=== PATIENT | female | born 1960 | race Caucasian/White ===

== ENCOUNTER 2019-02-16 21:05 | Emergency (ER) | payer OTHER ==
[~2019-02-16] VITALS: Ht 157.5 cm; Wt 45.4 kg
--- OUTSIDE RECORDS SUMMARY | 2019-02-16 21:06 | XMS REPORT ---
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 Allergies, Adverse Reactions, Alerts This patient has no known allergies or adverse reactions. Medications This patient has no known medications. Results Test Description Test Time Test Comments Text Results Atomic Results Result Comments RIBS UNILAT W/CXR [place] [address] Patient Name: JACKELYN SANCHES MR #: [id number] : 1960 Age/Sex: 57/F Req #: [id number] Adm Physician: Ordered by: REGINA COTTON Report #: [id number] Location: ER Room/Bed: Procedure: [id number] DX/RIBS UNILAT W/CXR Exam Date: Exam Time: REPORT STATUS: Signed PROCEDURE: X-RAY UNILATERAL RIBS WITH CHEST X-RAY COMPARISON: Chest x- ray 07/03/16. INDICATIONS: LEFT ANTERIOR CHEST PAIN FINDINGS: The rib structures on the left appear intact. There are calcifications of the costochondral cartilage on both sides of the chest. No acute rib fracture or dislocation is identified. There is no evidence of focal osseous lesion. Single PA view of the chest demonstrates no pleural effusion, pleural thickening, or pneumothorax. The cardiomediastinal silhouette is normal in size with stable atherosclerotic calcifications of the aortic arch. CONCLUSION: No rib fracture or dislocation. Dictated by: Lucas Navarrete M.D. on 06/28/2017 at 16:26 Electronically approved by: Lucas Navarrete M.D. on 06/28/2017 at 16:26 Dictated By: LUCAS NAVARRETE MD 25 Transcribed By: AYANNA on 06/28/171625 COPY TO: REGINA COTTON
[2019-02-16] MEDS ORDERED: VITAMIN D400 UNIT PO (21:53)
--- NOTE | 2019-02-16 22:20 | Diagnostic Imaging Report ---
Exam: Lumbar spine 2 views History: Back pain Comparison: None. Findings: Age-indeterminate transverse process fracture versus nonfusion left L2. Degenerative anterolisthesis of L4 on L5. Disc spaces relatively maintained with mild narrowing at L4-L5. Severe lower lumbar facet arthropathy. Impression: Age-indeterminate transverse process fracture versus nonfusion left L2. Severe lower lumbar facet arthropathy. Signed by: Dr. Ravi Rodriguez M.D. on 02/16/2019 10:17 PM
== END 2019-02-16 23:15 | disposition home or self-care (01) ==
LOC: ER 21:05
DX: M54.5 Low back pain (principal); S39.012A Strain of muscle, fascia and tendon of lower back, initial encounter; S33.5XXA Sprain of ligaments of lumbar spine, initial encounter; M51.36 Other intervertebral disc degeneration, lumbar region; V43.62XA Car passenger injured in collision with other type car in traffic accident, initial encounter; Y92.488 Other paved roadways as the place of occurrence of the external cause; I10 Essential (primary) hypertension; E78.5 Hyperlipidemia, unspecified; G89.29 Other chronic pain; Z86.73 Personal history of transient ischemic attack (TIA), and cerebral infarction without residual deficits
CPT/HCPCS: 72100; 99283

== ENCOUNTER 2019-02-20 12:23 | Emergency (ER) | payer OTHER ==
[~2019-02-20] VITALS: Ht 157.5 cm; Wt 45.4 kg
[~2019-02-20 12:23] MED LIST: VITAMIN D400 UNIT PO
--- NOTE | 2019-02-20 14:50 | Diagnostic Imaging Report ---
Cervical Spine, 7 radiographs HISTORY: Pain COMPARISON: None. FINDINGS: Limited sensitivity for detection of subtle fractures and ligamentous abnormalities. On the lateral view, the cervical spine is visualized from the skull base to C6. The alignment is normal. No acute displaced fracture involving the visualized cervical spine. Vertebral body heights are maintained. Degenerative changes , most severe at C5-C6 and C6-C7. IMPRESSION: No acute radiographic abnormality. Degenerative changes. Signed by: Dr. Devon Owens MD on 02/20/2019 2:46 PM
== END 2019-02-20 15:46 | disposition home or self-care (01) ==
LOC: ER 12:23
DX: M54.2 Cervicalgia (principal); S16.1XXA Strain of muscle, fascia and tendon at neck level, initial encounter; V49.9XXA Car occupant (driver) (passenger) injured in unspecified traffic accident, initial encounter; I10 Essential (primary) hypertension; J44.9 Chronic obstructive pulmonary disease, unspecified; E78.5 Hyperlipidemia, unspecified; G89.29 Other chronic pain; Z86.73 Personal history of transient ischemic attack (TIA), and cerebral infarction without residual deficits
CPT/HCPCS: 72050; 99283

== ENCOUNTER 2021-01-24 20:32 | Emergency (ER) | payer OTHER ==
[~2021-01-24] VITALS: Ht 157.5 cm; Wt 45.4 kg
[2021-01-24] MEDS ORDERED: SODIUM CHLORIDE 0.9% 1000ML 1,000 ML IV STA (21:07)
[2021-01-24 21:25] LABS: BASOPHILS # (AUTO) 0.1 (0.0-0.1); BASOPHILS % 0.4 % (0.0-1.0); EOSINOPHILS # (AUTO) 0.1 (0.0-0.4); EOSINOPHILS % 0.8 % (0.0-6.0); HEMOGLOBIN 13.7 g/dL (12.0-16.0); LYMPHOCYTES # (AUTO) 1.5 (1.0-3.2); LYMPHOCYTES % 11.9 % (18.0-39.1); MEAN CORPUSCULAR HEMOGLOBIN 28.1 pg (28-32); MEAN CORPUSCULAR HGB CONC 31.1 g/dL (31-35); MEAN CORPUSCULAR VOLUME 90.2 fL (81-99); MONOCYTES # (AUTO) 1.3 (0.2-0.8); MONOCYTES % 10.3 % (4.4-11.3); NEUTROPHILS # (AUTO) 9.5 (2.1-6.9); NEUTROPHILS % 76.2 % (38.7-80.0); PLATELET COUNT 358 x10e3/uL (140-360); RED BLOOD COUNT 4.88 x10e6/uL (3.6-5.1); RED CELL DISTRIBUTION WIDTH 14.6 % (11.7-14.4)
[2021-01-24 21:43] LABS: ALBUMIN/GLOBULIN RATIO 1.1 (0.8-2.0); ANION GAP 18.4 mmol/L (8-16); CALCIUM 9.7 mg/dL (8.4-10.2); CREATININE, SERUM 1.14 mg/dL (0.57-1.11); POTASSIUM 3.4 mmol/L (3.5-5.1)
== END 2021-01-24 23:20 | disposition home or self-care (01) ==
LOC: ER 20:50
DX: S20.219A Contusion of unspecified front wall of thorax, initial encounter (principal); S00.83XA Contusion of other part of head, initial encounter; M79.632 Pain in left forearm; V43.52XA Car driver injured in collision with other type car in traffic accident, initial encounter; Y92.488 Other paved roadways as the place of occurrence of the external cause; I10 Essential (primary) hypertension; E78.5 Hyperlipidemia, unspecified; J44.9 Chronic obstructive pulmonary disease, unspecified; E78.00 Pure hypercholesterolemia, unspecified; M54.9 Dorsalgia, unspecified; G89.29 Other chronic pain; Z86.73 Personal history of transient ischemic attack (TIA), and cerebral infarction without residual deficits; F17.210 Nicotine dependence, cigarettes, uncomplicated
CPT/HCPCS: 36415; 70450; 71250; 72125; 74176; 80053; 80320; 85025

== ENCOUNTER 2021-02-01 13:21 | Emergency (ER) | payer OTHER ==
[~2021-02-01] VITALS: Ht 157.5 cm; Wt 45.4 kg
[2021-02-01] MEDS ORDERED: ACETAMINOPHEN 325 MG TAB PO STA (14:48)
== END 2021-02-01 15:08 | disposition home or self-care (01) ==
LOC: ER 14:16
DX: R07.89 Other chest pain (principal); I10 Essential (primary) hypertension; E78.5 Hyperlipidemia, unspecified; J44.9 Chronic obstructive pulmonary disease, unspecified; E78.00 Pure hypercholesterolemia, unspecified; Z86.73 Personal history of transient ischemic attack (TIA), and cerebral infarction without residual deficits
CPT/HCPCS: 71250; 93005; 99284

== ENCOUNTER 2021-06-08 15:03 | Inpatient (IN) | payer OTHER ==
[~2021-06-08] VITALS: Ht 157.5 cm; Wt 45.4 kg
[2021-06-08] MEDS ORDERED: CEFTRIAXONE 1 GM in SODIUM CHLORIDE 0.9% 50ML 50 ML IV ONE (16:15)
[2021-06-08 16:36] LABS: BASOPHILS # (AUTO) 0.1 (0.0-0.1); BASOPHILS % 0.5 % (0.0-1.0); EOSINOPHILS # (AUTO) 0.2 (0.0-0.4); EOSINOPHILS % 1.9 % (0.0-6.0); HEMATOCRIT 38.8 % (34.2-44.1); HEMOGLOBIN 11.7 g/dL (12.0-16.0); LYMPHOCYTES # (AUTO) 2.2 (1.0-3.2); LYMPHOCYTES % 18.9 % (18.0-39.1); MEAN CORPUSCULAR HEMOGLOBIN 28.5 pg (28-32); MEAN CORPUSCULAR HGB CONC 30.2 g/dL (31-35); MEAN CORPUSCULAR VOLUME 94.6 fL (81-99); MONOCYTES % 8.8 % (4.4-11.3); NEUTROPHILS # (AUTO) 8.2 (2.1-6.9); NEUTROPHILS % 69.4 % (38.7-80.0); PLATELET COUNT 475 x10e3/uL (140-360); RED CELL DISTRIBUTION WIDTH 14.1 % (11.7-14.4)
[2021-06-08 16:40] LABS: INR 0.82; PROTHROMBIN TIME 11.7 seconds (11.9-14.5)
[2021-06-08 16:41] LABS: PARTIAL THROMBOPLASTIN TIME 27.2 seconds (23.8-35.5)
[2021-06-08 16:48] LABS: ALBUMIN 3.4 g/dL (3.5-5.0); ALBUMIN/GLOBULIN RATIO 0.9 (0.8-2.0); ANION GAP 11.7 mmol/L (8-16); CALCIUM 9.4 mg/dL (8.4-10.2); CREATININE, SERUM 0.76 mg/dL (0.57-1.11); MAGNESIUM 1.5 MG/DL (1.3-2.1); POTASSIUM 3.7 mmol/L (3.5-5.1)
[2021-06-08 16:55] LABS: CREATINE KINASE MB 5.6 ng/mL (0-5.0)
[2021-06-08 17:02] LABS: B-TYPE NATRIURETIC PEPTIDE2 29.4 pg/mL (0-100)
[2021-06-08] MEDS ORDERED: ALBUTEROL/IPRATROPIUM 3 ML NEB NEB ONE (17:15)
[2021-06-08] MEDS ORDERED: DEXAMETHASONE SOD PHOS 10 MG/1 ML VIAL IV ONE (17:15)
[2021-06-08] MEDS ORDERED: Morphine 4mg Syringe 4 MG/ML INJ IV PRN (17:30)
[2021-06-08 17:50] LABS: ABG HCO3 32 mmol/L (22-26); ABG PCO2 52 mmHg (35-45); ABG PO2 60 mmHg (80-105); ABG TCO2 34
[2021-06-08] MEDS ORDERED: ONDANSETRON HCL INJ 2MG/ML 2ML 2 MG/ML VIAL IV PRN (19:15)
[2021-06-08 21:05] VITALS: BP 172/88
[2021-06-08 21:10] VITALS: BP 172/88
[2021-06-08] MEDS ORDERED: CARISOPRODOL250 MG PO (21:56)
[2021-06-08] MEDS ORDERED: LISINOPRIL10 MG PO (21:56)
[2021-06-08] MEDS ORDERED: TYLENOL325 MG PO (21:56)
[2021-06-08] MEDS ORDERED: HYDROCODON-ACE1 EA11 PO (21:56)
[2021-06-08] MEDS ORDERED: ATENOLOL50 MG PO (21:56)
[2021-06-08] MEDS ORDERED: SODIUM CHLORIDE 0.9% 1000ML 1,000 ML IV ONE (22:15)
[2021-06-08] MEDS ORDERED: LISINOPRIL 10 MG TAB PO ONE (22:15)
[2021-06-08] MEDS ORDERED: ATENOLOL 50 MG TAB PO STA (22:28)
[2021-06-08] MEDS: TRAMADOL HCL 50 MG TAB PO PRN (22:35)
[2021-06-09] VITALS (8 sets, daily range): BP systolic 129–177; BP diastolic 73–96
[2021-06-09] MEDS: ALBUTEROL/IPRATROPIUM 3 ML NEB NEB SCH ×4 (02:00→19:32)
[2021-06-09] MEDS ORDERED: GUAIFENESIN/DEXTROMETHORPHAN LIQD 5 ML UDC NG PRN (03:45)
[2021-06-09] MEDS: HYDROCODONE/APAP 5MG-325MG TAB PO PRN ×4 (04:20→21:50)
[2021-06-09] MEDS: HYDRALAZINE HCL 20 MG/ML VIAL IV PRN (04:29)
[2021-06-09] MEDS ORDERED: SODIUM CHLORIDE 0.9% 500ML 500 ML IV ONE (04:45)
[2021-06-09 05:57] LABS: BASOPHILS % 0.2 % (0.0-1.0); HEMATOCRIT 36.1 % (34.2-44.1); HEMOGLOBIN 10.8 g/dL (12.0-16.0); LYMPHOCYTES # (AUTO) 0.9 (1.0-3.2); LYMPHOCYTES % 8.4 % (18.0-39.1); MEAN CORPUSCULAR HEMOGLOBIN 28.3 pg (28-32); MEAN CORPUSCULAR HGB CONC 29.9 g/dL (31-35); MEAN CORPUSCULAR VOLUME 94.5 fL (81-99); MONOCYTES # (AUTO) 0.3 (0.2-0.8); MONOCYTES % 2.6 % (4.4-11.3); NEUTROPHILS # (AUTO) 9.5 (2.1-6.9); NEUTROPHILS % 88.2 % (38.7-80.0); PLATELET COUNT 388 x10e3/uL (140-360); RED BLOOD COUNT 3.82 x10e6/uL (3.6-5.1); RED CELL DISTRIBUTION WIDTH 14.1 % (11.7-14.4)
[2021-06-09] MEDS ORDERED: GUAIFENESIN/DEXTROMETHORPHAN 237 ML SYRUP PO PRN (06:45)
[2021-06-09 07:11] LABS: ALBUMIN 3.1 g/dL (3.5-5.0); ALBUMIN/GLOBULIN RATIO 0.9 (0.8-2.0); ANION GAP 15.5 mmol/L (8-16); CALCIUM 8.9 mg/dL (8.4-10.2); CREATININE, SERUM 0.78 mg/dL (0.57-1.11); POTASSIUM 4.5 mmol/L (3.5-5.1)
[2021-06-09] MEDS ORDERED: SODIUM CHLORIDE 0.9% 250ML 250 ML ONE (08:49)
[2021-06-09] MEDS ORDERED: METHYLPREDNISOLONE SOD SUCC 40 MG/ML VIAL 1ML IV SCH (09:00)
[2021-06-09] MEDS: CEFTRIAXONE 1 GM in SODIUM CHLORIDE 0.9% 50ML 50 ML IV SCH (09:11)
[2021-06-09] MEDS: FAMOTIDINE 20 MG TAB PO SCH ×2 (09:11→17:20)
[2021-06-09] MEDS: ATENOLOL 50 MG TAB PO SCH (09:12)
[2021-06-09] MEDS: LISINOPRIL 10 MG TAB PO SCH (09:12)
[2021-06-09 12:38] LABS: CREATINE KINASE MB 3.7 ng/mL (0-5.0)
[2021-06-09] MEDS ORDERED: NICOTINE 21 MG/EA PATCH TOP PRN (13:45)
[2021-06-09] MEDS: LORAZEPAM INJ 2 MG/ML VIAL IV PRN ×2 (14:18→23:11)
[2021-06-09] MEDS: ENOXAPARIN SOD INJ 40 MG/0.4 ML SYR SC SCH (17:20)
[2021-06-09] MEDS: GUAIFENESIN/DEXTROMETHORPHAN LIQD 5 ML UDC PO PRN (21:50)
[2021-06-09] MEDS: METHYLPREDNISOLONE SOD SUCC 40 MG/ML VIAL 1ML IV SCH (22:15)
[2021-06-09] MEDS ORDERED: LORAZEPAM INJ 2 MG/ML VIAL ONE (23:11)
[2021-06-10] VITALS (8 sets, daily range): BP systolic 123–186; BP diastolic 50–98
[2021-06-10] MEDS: ALBUTEROL/IPRATROPIUM 3 ML NEB NEB SCH ×2 (00:05→07:28)
[2021-06-10] MEDS: HYDRALAZINE HCL 20 MG/ML VIAL IV PRN ×2 (05:28→20:43)
[2021-06-10] MEDS ORDERED: ALBUTEROL/IPRATROPIUM 3 ML NEB NEB PRN (07:00)
[2021-06-10] MEDS: CEFTRIAXONE 1 GM in SODIUM CHLORIDE 0.9% 50ML 50 ML IV SCH (08:23)
[2021-06-10] MEDS: FAMOTIDINE 20 MG TAB PO SCH ×2 (08:23→15:41)
[2021-06-10] MEDS: METHYLPREDNISOLONE SOD SUCC 40 MG/ML VIAL 1ML IV SCH (08:23)
[2021-06-10] MEDS: LISINOPRIL 10 MG TAB PO SCH (08:24)
[2021-06-10] MEDS: ATENOLOL 50 MG TAB PO SCH (08:24)
[2021-06-10] MEDS: HYDROCODONE/APAP 5MG-325MG TAB PO PRN ×3 (08:38→20:36)
[2021-06-10] MEDS: LORAZEPAM INJ 2 MG/ML VIAL IV PRN ×3 (08:38→20:36)
[2021-06-10] MEDS: ENOXAPARIN SOD INJ 40 MG/0.4 ML SYR SC SCH (17:34)
[2021-06-11] VITALS (9 sets, daily range): BP systolic 118–182; BP diastolic 60–93
[2021-06-11] MEDS: GUAIFENESIN/DEXTROMETHORPHAN LIQD 5 ML UDC PO PRN ×2 (00:30→23:38)
[2021-06-11] MEDS: HYDROCODONE/APAP 5MG-325MG TAB PO PRN ×4 (00:31→23:33)
[2021-06-11] MEDS: LORAZEPAM INJ 2 MG/ML VIAL IV PRN ×2 (02:35→10:34)
[2021-06-11] MEDS: HYDRALAZINE HCL 20 MG/ML VIAL IV PRN ×2 (04:22→23:58)
[2021-06-11 06:00] LABS: BASOPHILS # (AUTO) 0.1 (0.0-0.1); BASOPHILS % 0.2 % (0.0-1.0); EOSINOPHILS % 0.1 % (0.0-6.0); HEMATOCRIT 42.9 % (34.2-44.1); LYMPHOCYTES # (AUTO) 3.1 (1.0-3.2); LYMPHOCYTES % 14.1 % (18.0-39.1); MEAN CORPUSCULAR HEMOGLOBIN 28.1 pg (28-32); MEAN CORPUSCULAR HGB CONC 30.3 g/dL (31-35); MEAN CORPUSCULAR VOLUME 92.7 fL (81-99); MONOCYTES # (AUTO) 1.6 (0.2-0.8); MONOCYTES % 7.3 % (4.4-11.3); NEUTROPHILS # (AUTO) 16.9 (2.1-6.9); NEUTROPHILS % 77.4 % (38.7-80.0); PLATELET COUNT 475 x10e3/uL (140-360); RED BLOOD COUNT 4.63 x10e6/uL (3.6-5.1); RED CELL DISTRIBUTION WIDTH 14.6 % (11.7-14.4)
[2021-06-11 06:12] LABS: ANION GAP 13.9 mmol/L (8-16); CALCIUM 9.2 mg/dL (8.4-10.2); CREATININE, SERUM 0.74 mg/dL (0.57-1.11); POTASSIUM 3.9 mmol/L (3.5-5.1)
[2021-06-11] MEDS ORDERED: CEFTRIAXONE 1 GM VIAL ONE (08:06)
[2021-06-11] MEDS: FAMOTIDINE 20 MG TAB PO SCH ×2 (08:40→17:41)
[2021-06-11] MEDS: METHYLPREDNISOLONE SOD SUCC 40 MG/ML VIAL 1ML IV SCH ×2 (08:40→08:51)
[2021-06-11] MEDS: LISINOPRIL 10 MG TAB PO SCH ×2 (08:40→17:42)
[2021-06-11] MEDS: CEFTRIAXONE 1 GM in SODIUM CHLORIDE 0.9% 50ML 50 ML IV SCH (08:40)
[2021-06-11] MEDS: ATENOLOL 50 MG TAB PO SCH (08:41)
[2021-06-11 08:45] LABS: BASOPHILS # (AUTO) 0.1 (0.0-0.1); BASOPHILS % 0.3 % (0.0-1.0); EOSINOPHILS # (AUTO) 0.1 (0.0-0.4); EOSINOPHILS % 0.3 % (0.0-6.0); HEMOGLOBIN 14.3 g/dL (12.0-16.0); LYMPHOCYTES % 16.9 % (18.0-39.1); MEAN CORPUSCULAR HEMOGLOBIN 28.4 pg (28-32); MEAN CORPUSCULAR HGB CONC 30.4 g/dL (31-35); MEAN CORPUSCULAR VOLUME 93.4 fL (81-99); MONOCYTES # (AUTO) 1.5 (0.2-0.8); MONOCYTES % 6.5 % (4.4-11.3); NEUTROPHILS # (AUTO) 17.6 (2.1-6.9); NEUTROPHILS % 75.2 % (38.7-80.0); PLATELET COUNT 503 x10e3/uL (140-360); RED BLOOD COUNT 5.03 x10e6/uL (3.6-5.1); RED CELL DISTRIBUTION WIDTH 14.6 % (11.7-14.4)
[2021-06-11] MEDS ORDERED: AMLODIPINE BESYLATE 10 MG TAB PO SCH (09:00)
[2021-06-11] MEDS: TRAMADOL HCL 50 MG TAB PO PRN (10:26)
[2021-06-11] MEDS: ENOXAPARIN SOD INJ 40 MG/0.4 ML SYR SC SCH (17:42)
[2021-06-11 18:35] LABS: CLARITY,URINE HAZY (CLEAR); COLOR,URINE YELLOW (YELLOW); LEUKOCYTE ESTERASE ,URINE NEGATIVE (NEGATIVE); NITRITE,URINE NEGATIVE (NEGATIVE); PROTEIN,URINE DIPSTICK TRACE (NEGATIVE)
[2021-06-11 18:36] LABS: KETONES,URINE NEGATIVE (NEGATIVE); URINE UROBILINOGEN 0.2 mg/dL (0.2 - 1)
[2021-06-11 18:38] LABS: BACTERIA,URINE FEW /HPF; EPITHELIAL CELLS,URINE FEW /LPF; RBC,URINE 0-5 /HPF (0-5); WBC,URINE (MAN) 0-5 /HPF (0-5)
[2021-06-12 05:02] VITALS: BP 152/70
[2021-06-12] MEDS: HYDROCODONE/APAP 5MG-325MG TAB PO PRN (06:58)
[2021-06-12] MEDS ORDERED: LISINOPRIL10 MG PO (07:23)
[2021-06-12] MEDS ORDERED: MUCINEX600 MG PO (07:23)
[2021-06-12] MEDS ORDERED: ACETAMINOPHEN-1 EAC4 PO (07:23)
[2021-06-12] MEDS ORDERED: PREDNISONE10 MG PO (07:23)
[2021-06-12] MEDS ORDERED: NIFEDIPINE ER30 M1 PO (07:25)
[2021-06-12 08:02] VITALS: BP 149/82
[2021-06-12] MEDS: FAMOTIDINE 20 MG TAB PO SCH (08:44)
[2021-06-12] MEDS: CEFTRIAXONE 1 GM in SODIUM CHLORIDE 0.9% 50ML 50 ML IV SCH (08:44)
[2021-06-12] MEDS: LISINOPRIL 10 MG TAB PO SCH (08:45)
[2021-06-12] MEDS: ATENOLOL 50 MG TAB PO SCH (08:46)
[2021-06-12] MEDS ORDERED: ATENOLOL 50 MG TAB PO SCH (09:00)
[2021-06-12] MEDS ORDERED: METHYLPREDNISOLONE SOD SUCC 40 MG/ML VIAL 1ML IV SCH (09:00)
[2021-06-12] MEDS ORDERED: CEFTRIAXONE 1 GM in SODIUM CHLORIDE 0.9% 50ML 50 ML IV ONE (09:00)
[2021-06-12] MEDS ORDERED: NIFEDIPINE CR 30 MG TAB PO SCH ×2 (09:00)
[2021-06-12] MEDS ORDERED: CEFTRIAXONE 1 GM VIAL IM ONE (09:00)
== END 2021-06-12 10:31 | disposition home or self-care (01) | DRG 563 ==
LOC: ER 15:48 → ERHOLD 17:23 → IMCU 20:51 → OBSVTOIN 06-11 14:03
PROVIDERS: ADMIT Internal Medicine; ATTEND Internal Medicine
DX: S42.462A Displaced fracture of medial condyle of left humerus, initial encounter for closed fracture (principal); W19.XXXA Unspecified fall, initial encounter; J44.9 Chronic obstructive pulmonary disease, unspecified; I10 Essential (primary) hypertension; E78.5 Hyperlipidemia, unspecified; G89.29 Other chronic pain; Z86.73 Personal history of transient ischemic attack (TIA), and cerebral infarction without residual deficits; F41.9 Anxiety disorder, unspecified; Z20.822 Contact with and (suspected) exposure to COVID-19; D72.829 Elevated white blood cell count, unspecified; T38.0X5A Adverse effect of glucocorticoids and synthetic analogues, initial encounter
CPT/HCPCS: 36415; 36600; 71045; 71250; 80048; 80053; 81001; 82550; 82553; 82805; 83605; 83735; 83880; 84484; 85025; 85379; 85610; 85730; 87040; 87086; 93005; 94640; 97139; 99284; G0378; J0360; J0456; J0696; J1100; J1650; J2060; J2920; J7030; J7040; J7050; U0002

== ENCOUNTER 2021-06-27 13:56 | Emergency (ER) | payer OTHER ==
[~2021-06-27] VITALS: Ht 157.5 cm; Wt 45.4 kg
[~2021-06-27 13:56] MED LIST changes: +ACETAMINOPHEN-1 EAC4 PO; +ATENOLOL50 MG PO; +CARISOPRODOL250 MG PO; +HYDROCODON-ACE1 EA11 PO; +LISINOPRIL10 MG PO; +MUCINEX600 MG PO; +NIFEDIPINE ER30 M1 PO; +PREDNISONE10 MG PO; +TYLENOL325 MG PO
[2021-06-27 14:33] LABS: BASOPHILS % 0.4 % (0.0-1.0); EOSINOPHILS # (AUTO) 0.1 (0.0-0.4); EOSINOPHILS % 1.8 % (0.0-6.0); HEMATOCRIT 40.8 % (34.2-44.1); HEMOGLOBIN 12.6 g/dL (12.0-16.0); LYMPHOCYTES # (AUTO) 1.9 (1.0-3.2); LYMPHOCYTES % 24.7 % (18.0-39.1); MEAN CORPUSCULAR HEMOGLOBIN 28.5 pg (28-32); MEAN CORPUSCULAR HGB CONC 30.9 g/dL (31-35); MEAN CORPUSCULAR VOLUME 92.3 fL (81-99); MONOCYTES # (AUTO) 0.8 (0.2-0.8); MONOCYTES % 10.2 % (4.4-11.3); NEUTROPHILS # (AUTO) 4.8 (2.1-6.9); NEUTROPHILS % 62.5 % (38.7-80.0); PLATELET COUNT 336 x10e3/uL (140-360); RED BLOOD COUNT 4.42 x10e6/uL (3.6-5.1); RED CELL DISTRIBUTION WIDTH 14.3 % (11.7-14.4)
[2021-06-27 14:45] LABS: ALBUMIN 3.5 g/dL (3.5-5.0); ALBUMIN/GLOBULIN RATIO 0.9 (0.8-2.0); ANION GAP 16.9 mmol/L (8-16); CALCIUM 9.1 mg/dL (8.4-10.2); CREATININE, SERUM 0.87 mg/dL (0.57-1.11); POTASSIUM 4.9 mmol/L (3.5-5.1)
[2021-06-27] MEDS ORDERED: ZITHROMAX250 MG PO (15:38)
[2021-06-27] MEDS ORDERED: PREDNISONE20 MG PO (15:39)
[2021-06-27 16:19] VITALS: BP 152/91
== END 2021-06-27 16:45 | disposition home or self-care (01) ==
LOC: ER 14:01
DX: J44.1 Chronic obstructive pulmonary disease with (acute) exacerbation (principal); R05.9 Cough, unspecified; I10 Essential (primary) hypertension; E78.5 Hyperlipidemia, unspecified; E78.00 Pure hypercholesterolemia, unspecified; M54.9 Dorsalgia, unspecified; G89.29 Other chronic pain; Z86.73 Personal history of transient ischemic attack (TIA), and cerebral infarction without residual deficits; Z20.822 Contact with and (suspected) exposure to COVID-19
CPT/HCPCS: 36415; 71045; 80053; 85025; 93005; 99284; U0002

== ENCOUNTER 2021-09-27 14:41 | Emergency (ER) | payer OTHER ==
[~2021-09-27] VITALS: Ht 147.3 cm; Wt 49.9 kg
[~2021-09-27 14:41] MED LIST changes: +PREDNISONE20 MG PO; +ZITHROMAX250 MG PO
[2021-09-27] MEDS ORDERED: ACETAMINOPHEN 325 MG TAB PO STA (14:49)
[2021-09-27] MEDS ORDERED: CLONIDINE HCL 0.1 MG TAB PO STA (14:50)
[2021-09-27] MEDS ORDERED: KETOROLAC TROMETHAMINE 60 MG/2 ML VIAL IM ONE (15:00)
[2021-09-27] MEDS ORDERED: KETOROLAC TROMETHAMINE 60 MG/2 ML VIAL ONE (15:05)
[2021-09-27] MEDS ORDERED: CLONIDINE HCL 0.1 MG TAB ONE (15:05)
[2021-09-27] MEDS ORDERED: ACETAMINOPHEN 325 MG TAB ONE (15:06)
[2021-09-27] MEDS ORDERED: LISINOPRIL10 MG PO (16:32)
[2021-09-27] MEDS ORDERED: ATENOLOL50 MG PO (16:32)
[2021-09-27] MEDS ORDERED: VENTOLIN HFA18 GM INH (16:34)
[2021-09-27] MEDS ORDERED: AZITHROMYCIN250 MG PO (16:34)
[2021-09-27] MEDS ORDERED: PREDNISONE20 MG PO (16:34)
== END 2021-09-27 16:39 | disposition home or self-care (01) ==
LOC: FSED 14:49
DX: R07.89 Other chest pain (principal); Y00.XXXA Assault by blunt object, initial encounter; I10 Essential (primary) hypertension; E78.5 Hyperlipidemia, unspecified; E78.00 Pure hypercholesterolemia, unspecified; J44.9 Chronic obstructive pulmonary disease, unspecified; M54.9 Dorsalgia, unspecified; G89.29 Other chronic pain; I69.354 Hemiplegia and hemiparesis following cerebral infarction affecting left non-dominant side
CPT/HCPCS: 71250; 96372; 99283; J1885

== ENCOUNTER 2022-01-24 03:20 | Emergency (ER) | payer OTHER ==
[~2022-01-24] VITALS: Ht 147.3 cm; Wt 49.9 kg
[~2022-01-24 03:20] MED LIST changes: +AZITHROMYCIN250 MG PO; +VENTOLIN HFA18 GM INH
== END 2022-01-24 04:45 | disposition home or self-care (01) ==
LOC: ER 03:31
DX: J40 Bronchitis, not specified as acute or chronic (principal); J44.9 Chronic obstructive pulmonary disease, unspecified; I10 Essential (primary) hypertension; Z86.73 Personal history of transient ischemic attack (TIA), and cerebral infarction without residual deficits
CPT/HCPCS: 71045; 94760; 99283; U0002